=== PATIENT | female | born 1950 | race African-American/Black ===

== ENCOUNTER 2017-03-20 13:00 | Inpatient (IN) | payer OTHER ==
[~2017-03-20] VITALS: Ht 154.9 cm; Wt 56.7 kg
[~2017-03-20 13:00] MED LIST: FURO80TA87 PO; HYDR-523 PO; IPRA3AMP9 IH; ISOS20TA8 PO; OMEP20CA4 PO; SEVE800T8 PO; TOPXL5 PO; WARF3TAB27 PO
[2017-03-20 15:32] LABS: INR 1.6; PROTHROMBIN TIME 16.6 sec (9.4-11.6)
[2017-03-20 15:33] LABS: HEMATOCRIT. 30.9 % (36.0-48.0); HEMOGLOBIN. 10.5 g/dL (12.0-16.0); MEAN CORPUSCULAR HEMOGLOBIN 33.3 pg (28.0-32.0); MEAN CORPUSCULAR VOLUME 98.4 fL (81.0-99.0); MEAN PLATELET VOLUME 7.2 fl (7.4-10.4); PLATELET 111 x1000/uL (130-400); RED BLOOD CELL COUNT 3.14 mill/uL (4.2-5.4); RED CELL DISTRIBUTION WIDTH 16.9 % (11.6-14.6)
[2017-03-20 15:35] LABS: CARBON DIOXIDE 31 mEq/L (21-32); CHLORIDE 98 mEq/L (98-107)
[2017-03-20 15:41] LABS: TROPONIN I 0.05 ng/mL (0.00-0.04)
[2017-03-20 16:25] LABS: PLATELET ESTIMATE DECREASED
[2017-03-20 16:33] LABS: HEPATITIS B CORE AB IGM NEGATIVE
[2017-03-20 16:34] LABS: HEPATITIS A AB IGM NEGATIVE (NEGATIVE)
[2017-03-20 20:50] VITALS: BP 166/91
[2017-03-20] MEDS ORDERED: IPRATROPIUM/ALBUTEROL 0.5-3(2.5)MG/3ML NEB HHN PRN (22:15)
[2017-03-20] MEDS ORDERED: TEMAZEPAM 15MG CAPSULE PO PRN (22:15)
[2017-03-20] MEDS ORDERED: MORPHINE SULFATE 4 MG/ML CPJ (NOT FOR IM USE) IV PRN (22:15)
[2017-03-20] MEDS ORDERED: ONDANSETRON HCL 4MG/2ML VIAL IV PRN (22:15)
[2017-03-20] MEDS ORDERED: ACETAMINOPHEN 325MG TABLET PO PRN (22:15)
[2017-03-20] MEDS ORDERED: CLONIDINE 0.1MG TABLET PO PRN (22:15)
[2017-03-20] MEDS ORDERED: VANCOMYCIN 1,000 MG in DEXT 5% WATER 250 ML IV SCH (23:30)
[2017-03-20] MEDS: PIPERACILLIN/TAZ 2.25G PREMIX 50 ML IV SCH (23:30)
[2017-03-20] MEDS ORDERED: PIPERACILLIN/TAZ 2.25G PREMIX 50 ML IV SCH (23:30)
[2017-03-21] VITALS: BP 145/92
[2017-03-21] MEDS ORDERED: VANCOMYCIN 1 G PREMIX 200 ML IV NR
[2017-03-21 00:39] LABS: CREATINE KINASE MB FRACTION 1.5 ng/mL (0.5-3.6)
[2017-03-21 00:41] LABS: TROPONIN I 0.05 ng/mL (0.00-0.04)
[2017-03-21 04:00] VITALS: BP 147/87
[2017-03-21] MEDS: MECLIZINE 12.5MG TABLET PO PRN ×2 (04:29→21:49)
[2017-03-21] MEDS: FUROSEMIDE 80MG TABLET PO SCH ×2 (06:53→17:34)
[2017-03-21] MEDS: PIPERACILLIN/TAZ 2.25G PREMIX 50 ML IV SCH ×2 (06:53→18:15)
[2017-03-21 07:38] LABS: INR 1.7; PROTHROMBIN TIME 17.8 sec (9.4-11.6)
[2017-03-21] MEDS: PANTOPRAZOLE 40MG DR TABLET PO SCH (07:40)
[2017-03-21 07:52] LABS: HEPATITIS B SURFACE ANTIGEN NEGATIVE
[2017-03-21 08:00] VITALS: BP 120/81
[2017-03-21] MEDS: METOPROLOL TARTRATE 25MG TABLET PO SCH ×2 (09:00→21:46)
[2017-03-21] MEDS: ASPIRIN 81MG TABLET PO SCH (09:00)
[2017-03-21 09:11] LABS: HEMATOCRIT. 27.1 % (36.0-48.0); HEMOGLOBIN. 9.2 g/dL (12.0-16.0); MEAN CORPUSCULAR HEMOGLOBIN 33.3 pg (28.0-32.0); MEAN CORPUSCULAR VOLUME 97.6 fL (81.0-99.0); MEAN PLATELET VOLUME 7.6 fl (7.4-10.4); PLATELET 101 x1000/uL (130-400); RED BLOOD CELL COUNT 2.77 mill/uL (4.2-5.4); RED CELL DISTRIBUTION WIDTH 17.1 % (11.6-14.6)
[2017-03-21] MEDS: IPRATROPIUM/ALBUTEROL 0.5-3(2.5)MG/3ML NEB HHN SCH ×4 (09:12→21:00)
[2017-03-21 09:19] LABS: CREATINE KINASE MB FRACTION 1.4 ng/mL (0.5-3.6); TROPONIN I 0.07 ng/mL (0.00-0.04)
[2017-03-21] MEDS: SEVELAMER CARBONATE 800 MG TABLET PO SCH ×3 (09:32→17:44)
[2017-03-21] MEDS: ISOSORBIDE DINITRATE 20MG TABLET PO SCH ×3 (09:35→17:46)
[2017-03-21 12:00] VITALS: BP 114/66
[2017-03-21] MEDS: MIDODRINE HCL 5MG TABLET PO SCH ×2 (13:00→17:00)
[2017-03-21 13:30] LABS: PLATELET ESTIMATE SLIGHTLY DECREASED
[2017-03-21 16:00] VITALS: BP 128/62
[2017-03-21] MEDS: WARFARIN SODIUM 7.5MG TABLET PO SCH ×2 (17:34→17:45)
[2017-03-21 20:00] VITALS: BP 125/72
[2017-03-21] MEDS ORDERED: EPOETIN ALFA 10000UNITS/ML VIAL SUBCUT SCH (21:00)
[2017-03-22] VITALS: BP 131/80
[2017-03-22] MEDS: PIPERACILLIN/TAZ 2.25G PREMIX 50 ML IV SCH ×4 (02:20→22:12)
[2017-03-22 04:00] VITALS: BP 121/82
[2017-03-22 06:15] LABS: INR 1.8; PROTHROMBIN TIME 18.7 sec (9.4-11.6)
[2017-03-22 06:33] LABS: HEMATOCRIT. 28.8 % (36.0-48.0); HEMOGLOBIN. 9.8 g/dL (12.0-16.0); MEAN CORPUSCULAR HEMOGLOBIN 33.4 pg (28.0-32.0); MEAN CORPUSCULAR VOLUME 98.2 fL (81.0-99.0); MEAN PLATELET VOLUME 7.3 fl (7.4-10.4); PLATELET 95 x1000/uL (130-400); RED BLOOD CELL COUNT 2.93 mill/uL (4.2-5.4)
[2017-03-22 08:00] VITALS: BP 111/75
[2017-03-22] MEDS: IPRATROPIUM/ALBUTEROL 0.5-3(2.5)MG/3ML NEB HHN SCH ×4 (08:24→21:46)
[2017-03-22] MEDS: SEVELAMER CARBONATE 800 MG TABLET PO SCH ×3 (08:36→18:07)
[2017-03-22] MEDS: FUROSEMIDE 80MG TABLET PO SCH ×2 (08:36→18:10)
[2017-03-22] MEDS: MECLIZINE 12.5MG TABLET PO PRN (08:37)
[2017-03-22] MEDS: MIDODRINE HCL 5MG TABLET PO SCH ×3 (08:37→18:09)
[2017-03-22] MEDS: PANTOPRAZOLE 40MG DR TABLET PO SCH (08:37)
[2017-03-22] MEDS: METOPROLOL TARTRATE 25MG TABLET PO SCH ×2 (08:38→20:39)
[2017-03-22] MEDS: ISOSORBIDE DINITRATE 20MG TABLET PO SCH ×3 (08:38→18:09)
[2017-03-22] MEDS: ASPIRIN 81MG TABLET PO SCH (08:41)
[2017-03-22 10:48] LABS: PLATELET ESTIMATE DECREASED
[2017-03-22 12:00] VITALS: BP 104/74
[2017-03-22] MEDS: DOCUSATE SODIUM 100MG CAPSULE PO SCH ×2 (14:13→18:07)
[2017-03-22 16:00] VITALS: BP 122/71
[2017-03-22] MEDS ORDERED: WARFARIN SODIUM 3MG TABLET PO SCH (18:00)
[2017-03-22 20:00] VITALS: BP 126/74
[2017-03-23] VITALS (8 sets, daily range): BP systolic 111–132; BP diastolic 67–78
[2017-03-23] MEDS: PIPERACILLIN/TAZ 2.25G PREMIX 50 ML IV SCH ×2 (06:34→16:22)
[2017-03-23] MEDS: FUROSEMIDE 80MG TABLET PO SCH (06:34)
[2017-03-23 06:41] LABS: INR 2.1; PROTHROMBIN TIME 21.3 sec (9.4-11.6)
[2017-03-23 06:42] LABS: BASOPHILS % 0.8 % (0.0-2.0); EOSINOPHILS % 3.5 % (0.0-5.0); HEMATOCRIT. 28.2 % (36.0-48.0); HEMOGLOBIN. 9.6 g/dL (12.0-16.0); LYMPHOCYTES % 14.4 % (20.0-50.0); MEAN CORPUSCULAR HEMOGLOBIN 33.2 pg (28.0-32.0); MEAN CORPUSCULAR VOLUME 98.1 fL (81.0-99.0); MEAN PLATELET VOLUME 7.3 fl (7.4-10.4); MONOCYTES % 12.6 % (2.0-8.0); NEUTROPHILS % 68.7 % (40.0-76.0); PLATELET 101 x1000/uL (130-400); RED BLOOD CELL COUNT 2.87 mill/uL (4.2-5.4); RED CELL DISTRIBUTION WIDTH 16.9 % (11.6-14.6)
[2017-03-23 07:51] LABS: HAPTOGLOBIN 53 mg/dL (30-200)
[2017-03-23] MEDS: ASPIRIN 81MG TABLET PO SCH (09:00)
[2017-03-23] MEDS: METOPROLOL TARTRATE 25MG TABLET PO SCH (09:00)
[2017-03-23] MEDS: IPRATROPIUM/ALBUTEROL 0.5-3(2.5)MG/3ML NEB HHN SCH (09:00)
[2017-03-23 09:07] LABS: ERYTHROPOIETIN SERUM 69.9 mIU/mL (2.6-18.5)
[2017-03-23] MEDS: PANTOPRAZOLE 40MG DR TABLET PO SCH (10:45)
[2017-03-23] MEDS: ISOSORBIDE DINITRATE 20MG TABLET PO SCH ×3 (10:45→17:10)
[2017-03-23] MEDS: MIDODRINE HCL 5MG TABLET PO SCH ×3 (10:46→17:11)
[2017-03-23] MEDS: SEVELAMER CARBONATE 800 MG TABLET PO SCH (10:46)
[2017-03-23] MEDS: DOCUSATE SODIUM 100MG CAPSULE PO SCH (10:46)
[2017-03-23] MEDS ORDERED: VANCOMYCIN 1 G PREMIX 200 ML IV NR (17:00)
[2017-03-23] MEDS ORDERED: WARFARIN SODIUM 3MG TABLET PO NR (18:00)
[2017-03-24 10:12] LABS: IMMUNOGLOBULIN A 276 mg/dL (87-352); IMMUNOGLOBULIN G 3098 mg/dL (700-1600); IMMUNOGLOBULIN M 69 mg/dL (26-217)
[2017-03-27 09:07] LABS: METHYLMALONIC ACID 2029 nmol/L (0-378)
== END 2017-03-23 18:15 | disposition home or self-care (01) | DRG 73 ==
LOC: ER 13:20 → 7WST 19:07 → EDBEDREQTM 19:08 → EDBEDREQ 19:08 → ENRESERV 19:42
PROVIDERS: ADMIT Internal Medicine; ATTEND Internal Medicine
PROC: 5A1D70Z Performance of Urinary Filtration, Intermittent, Less than 6 Hours Per Day (ICD-10-PCS; principal; 2017-03-21)
DX: G90.8 Other disorders of autonomic nervous system (principal); N18.6 End stage renal disease; I13.2 Hypertensive heart and chronic kidney disease with heart failure and with stage 5 chronic kidney disease, or end stage renal disease; D61.818 Other pancytopenia; I42.9 Cardiomyopathy, unspecified; E87.8 Other disorders of electrolyte and fluid balance, not elsewhere classified; E87.1 Hypo-osmolality and hyponatremia; J44.1 Chronic obstructive pulmonary disease with (acute) exacerbation; I48.92 Unspecified atrial flutter; I50.22 Chronic systolic (congestive) heart failure; I48.91 Unspecified atrial fibrillation; D63.8 Anemia in other chronic diseases classified elsewhere; F41.9 Anxiety disorder, unspecified; I25.10 Atherosclerotic heart disease of native coronary artery without angina pectoris; Z99.2 Dependence on renal dialysis; J45.909 Unspecified asthma, uncomplicated; Z91.81 History of falling; Z79.899 Other long term (current) drug therapy; Z88.6 Allergy status to analgesic agent; Z80.8 Family history of malignant neoplasm of other organs or systems
CPT/HCPCS: 36415; 71010; 80048; 80053; 80061; 80202; 80307; 82550; 82553; 82668; 82784; 83010; 83036; 83615; 83735; 83880; 83921; 84484; 85025; 85610; 85651; 86334; 86705; 86709; 86803; 87040; 87340; 93005; 93306; 94640; 94664; 97116; 97162; 99285; A6261; J0885; J2543; J3370; J7040; J7620; J8597